=== PATIENT | male | born 1955 | race Caucasian/White ===

== ENCOUNTER → 2017-04-15 15:48 | Outpatient (CLI) | payer BC | END | disposition home or self-care (01) | LOC: D.RAD 15:48 | DX: M54.2 Cervicalgia (principal); M47.812 Spondylosis without myelopathy or radiculopathy, cervical region; M46.92 Unspecified inflammatory spondylopathy, cervical region; M54.5 Low back pain; M47.897 Other spondylosis, lumbosacral region; Z79.899 Other long term (current) drug therapy; Z79.891 Long term (current) use of opiate analgesic ==

== ENCOUNTER → 2018-05-23 16:58 | Outpatient (CLI) | payer BC | END | disposition home or self-care (01) | LOC: D.MRI 16:58 | DX: M54.2 Cervicalgia (principal); M48.52XA Collapsed vertebra, not elsewhere classified, cervical region, initial encounter for fracture; M47.812 Spondylosis without myelopathy or radiculopathy, cervical region; M54.5 Low back pain; M47.897 Other spondylosis, lumbosacral region; G89.4 Chronic pain syndrome; Z79.899 Other long term (current) drug therapy; Z79.891 Long term (current) use of opiate analgesic ==